=== PATIENT | male | born 1965 | race Caucasian/White ===

== ENCOUNTER → 2018-02-06 14:14 | Outpatient (CLI) | payer MEDICARE, OTHER, SELFPAY ==
--- NOTE | 2018-02-06 14:15 | CT_ITS ---
CT head/brain wo con HISTORY: Headache, memory loss ITS.REASON: memory loss ORDERING PHYSICIAN: Radha Martinez MD PATIENT AGE: 52 years COMPARISON made to MRI of 02/20/2011 TECHNIQUE: Axial images obtained without contrast. Brain and bone windows reviewed. All CT scans at the facility use one or more dose reduction, viz: automated exposure control; ma/kV adjustment per patient size (including targeted exams where dose is matched to indication; i.e. head); or iterative reconstruction technique. FINDINGS: No midline shift, mass effect, intracranial hemorrhage, hydrocephalus, or extra-axial fluid collection is evident. The calvarium has an unremarkable appearance. No mastoid effusion. No sinus air-fluid levels.. IMPRESSION: Negative CT head without contrast. No acute finding
--- NOTE | 2018-02-06 14:32 | XR_ITS ---
XR cervical spine w flex/ext CLINICAL INDICATION: ITS.REASON: neuropathy ORDERING PHYSICIAN: Radha Martinez MD PATIENT AGE: 52 years FINDINGS: Normal alignment. Small anterior osteophytes are present at C3 C4 C5 and C6 and C7. No significant foraminal narrowing. Mild facet hypertrophic changes are present C4-C7. The disc spaces are well-preserved. No lytic or blastic change. No cervical rib. IMPRESSION: Mild cervical spondylosis, no acute finding
--- NOTE | 2018-02-06 14:32 | XR_ITS ---
EXAM: XR lumbar spine 2-3V HISTORY: Low back pain, neuropathy ITS.REASON: neuropathy ORDERING PHYSICIAN: Radha Martinez MD PATIENT AGE: 52 years COMPARISON: FINDINGS: There is mild spondylosis of the lumbar spine with small anterior osteophytes at L2, L3, and L4. Normal alignment. No fracture or dislocation. No lytic or blastic change. The disc spaces are well-preserved. IMPRESSION: Mild lumbar spondylosis, no acute finding
== END ==
PROVIDERS: PCP Family Medicine Geriatric Medicine; Visit Provider Specialist
DX: R41.3 Other amnesia (principal); G62.9 Polyneuropathy, unspecified; R29.898 Other symptoms and signs involving the musculoskeletal system; M62.81 Muscle weakness (generalized); G93.40 Encephalopathy, unspecified
CPT/HCPCS: 70450; 72052; 72100

== ENCOUNTER → 2018-02-18 13:46 | Outpatient (CLI) | payer MEDICARE, OTHER, SELFPAY ==
[2018-02-18 15:05] LABS: Basophils # 0.1 K/mm3 (0-0.2); Basophils % 1.1 % (0.1-2.0); Eosinophils # 0.4 K/mm3 (0.0-0.4); Eosinophils % 6.3 % (0.1-12.0); Hematocrit 40.5 % (42.0-52.0); Lymphocytes # 1.7 K/mm3 (0.7-4.5); Lymphocytes % 29.7 K/mm3 (10-50); Mean Corpuscular HGB Conc 34.6 g/dL (31.8-35.4); Mean Corpuscular Hemoglobin 31.2 pg (27.0-31.2); Mean Corpuscular Volume 90.1 fl (80-94); Mean Platelet Volume 8.4 fl (7.4-10.4); Monocytes # 0.4 K/mm3 (0.1-1.0); Neutrophils # 3.3 K/mm3 (1.8-7.8); Neutrophils % 55.8 % (37.0-80.0); Platelet Count 188 K/mm3 (142-424); Red Blood Count 4.49 M/mm3 (4.60-6.20); Red Cell Distribution Width 12.9 % (11.5-17.5); White Blood Count 5.9 K/mm3 (4.8-10.8)
[2018-02-18 16:31] LABS: Alanine Aminotransferase 22 U/L (12-78); Albumin Level 3.9 gm/dL (3.4-5.0); Albumin/Globulin Ratio 1.4 (1.1-1.8); Alkaline Phosphatase 78 U/L (46-116); Anion Gap 11.3 mEq/L (5-15); Aspartate Amino Transferase 18 U/L (15-37); Bilirubin,Total 0.4 mg/dL (0.2-1.0); Blood Urea Nitrogen 10 mg/dL (7-18); Calcium 8.7 mg/dL (8.5-10.1); Carbon Dioxide 28 mmol/L (21.0-32.0); Chloride 106 mmol/L (98-107); Creatinine,Serum 1.02 mg/dL (0.70-1.30); Estimated Glomerular Filt Rate 76 ml/min (>60); GFR (African American) 92 ML/MIN (>60); Globulin 2.8 gm/dl (1.3-3.2); Glucose 92 mg/dL (74-106); Potassium 4.3 mmoL/L (3.5-5.1); Sodium 141 mmol/L (136-145); Thyroid Stimulating Hormone 1.53 uIU/ml (0.358-3.740); Total Protein,Serum 6.7 gm/dL (6.4-8.2)
[2018-02-20 08:29] LABS: Vitamin B12 359 pg/mL (232-1245)
[2018-02-21 14:45] LABS: Folate 4.4 ng/mL (>3.0); Rapid Plasma Reagin Ab Titer Non Reactive (NonRea<1:1)
== END ==
PROVIDERS: Visit Provider Specialist
DX: R41.3 Other amnesia (principal)
CPT/HCPCS: 36415; 80053; 82607; 82746; 84443; 85025; 86592

== ENCOUNTER → 2018-03-25 12:59 | Outpatient (POV) | payer MEDICARE, OTHER, SELFPAY | PROVIDERS: PCP Family Medicine Geriatric Medicine; Visit Provider Specialist | DX: R20.0 Anesthesia of skin (principal); R20.2 Paresthesia of skin ==

== ENCOUNTER → 2018-04-08 15:59 | Outpatient (POV) | payer MEDICARE, OTHER, SELFPAY | PROVIDERS: PCP Family Medicine Geriatric Medicine; Visit Provider Specialist | DX: R20.0 Anesthesia of skin (principal); R20.2 Paresthesia of skin | CPT/HCPCS: 95886; 95910 ==

== ENCOUNTER → 2019-03-24 09:03 | Outpatient (CLI) | payer MEDICARE, MEDICAID, SELFPAY ==
[2019-03-24 11:21] LABS: Ferritin 126 ng/mL (8-388)
[2019-03-25 08:17] LABS: Iron 89 ug/dL (38-169); UIBC 265 ug/dL (111-343)
[2019-03-28 06:20] LABS: Iron Saturation 25 % (15-55)
== END ==
PROVIDERS: Visit Provider Specialist
DX: E83.10 Disorder of iron metabolism, unspecified (principal)
CPT/HCPCS: 36415; 82728; 83540; 83550

== ENCOUNTER → 2019-09-08 08:38 | Outpatient (POV) | payer MEDICARE, MEDICAID, SELFPAY | PROVIDERS: Visit Provider Specialist | DX: M79.604 Pain in right leg (principal); M79.605 Pain in left leg; G62.9 Polyneuropathy, unspecified; R20.2 Paresthesia of skin | CPT/HCPCS: 95886; 95909 ==